=== PATIENT | female | born 1970 | race African-American/Black ===

== ENCOUNTER 2017-02-21 10:25 | Emergency (ER) | payer BC ==
[2017-02-21 09:49] LABS: BASOPHILS 0.3 %; BASOPHILS ABSOLUTE 0.02 10/3/uL (0.0-0.16); EOSINOPHILS ABSOLUTE 0.16 10/3/uL (0.0-0.53); HEMATOCRIT 35.6 % (36.0-48.0); HEMOGLOBIN 12.2 g/dL (12.0-16.0); IMMATURE GRANULOCYTES 0.3 %; IMMATURE GRANULOCYTES ABSOLUTE 0.02 10/3/uL (0.0-0.11); LYMPHOCYTES 16.5 %; LYMPHOCYTES ABSOLUTE 1.31 10/3/uL (0.67-4.30); MEAN CORPUS HGB CONC 34.3 g/dL (32.0-36.0); MEAN CORPUSCULAR HEMOGLOB 28.2 pg (26.0-34.0); MEAN CORPUSCULAR VOLUME 82.4 fL (80-100); MEAN PLATELET VOLUME 10.1 fL (9.2-13.0); MONOCYTES 11.5 %; MONOCYTES ABSOLUTE 0.91 10/3/uL (0.21-1.20); NEUTROPHILS 69.4 %; PLATELET COUNT 329 10/3/uL (150-400); RBC DISTRIBUTION WIDTH 12.7 % (12.0-16.0); RED CELL COUNT 4.32 10/6/uL (4.0-5.6); WHITE BLOOD CELLS 7.9 10/3/uL (4.5-10.5)
[2017-02-21 09:50] LABS: MANUAL DIFF NO %
[2017-02-21 10:05] LABS: A/G RATIO 0.8 (0.7-1.9); ALBUMIN 3.2 G/DL (3.5-5.0); ALKALINE PHOSPHATASE 64 U/L (45-117); CALCIUM, SERUM 8.3 MG/DL (8.5-10.4); CHLORIDE, SERUM 106 MMOL/L (96-112); CO2 (CARBON DIOXIDE) 29 MMOL/L (24-34); CREATININE 0.82 MG/DL (0.55-1.02); GFR AFRICAN AMERICAN 101 ML/MIN (>=60); GFR NON AFRICAN AMERICAN 87 ML/MIN (>=60); GLOBULIN 3.8 G/DL (2.5-4.1); GLUCOSE, SERUM 94 MG/DL (60-99); POTASSIUM, SERUM 3.8 MMOL/L (3.5-5.3); SGOT(AST) 21 U/L (5-40); SGPT(ALT) 34 U/L (5-65); SODIUM, SERUM 142 MMOL/L (135-148); TOTAL BILIRUBIN 0.5 MG/DL (0-1.2)
[2017-02-21 10:06] LABS: BUN (BLOOD UREA NITROGEN) 6 MG/DL (6-23)
[2017-07-04] MEDS ORDERED: P20 PO (16:49)
[2017-07-04] MEDS ORDERED: ADVIL PO (16:50)
== END 2017-02-21 13:03 | disposition home or self-care (01) ==
LOC: ER 10:25
PROVIDERS: Physician Assistant
DX: R22.1 Localized swelling, mass and lump, neck (principal); D86.9 Sarcoidosis, unspecified; Z88.0 Allergy status to penicillin
CPT/HCPCS: 70491; 80053; 85025; 93005; 96374; 99284; Q9967